=== PATIENT | male | born 1970 | race Caucasian/White ===

== ENCOUNTER 2018-07-04 13:01 | Observation (INO) ==
[2018-07-04] MEDS ORDERED: NITROGLYCERIN 2% OINTMENT 30GM TUBE EXT ONE (13:24)
[2018-07-04 13:30] LABS: Basophils # (auto) 0.03 K/uL (0-0.2); Basophils % (auto) 0.6 %; Eosinophils # (auto) 0.05 K/uL (0-0.5); Hematocrit (blood only) 44.3 % (42-52); Hemoglobin 15.5 g/dL (14.0-18.0); Immature Granulocytes # (auto) 0.01 K/uL (0.00-0.02); Immature Granulocytes % (auto) 0.2 %; Lymphocytes % (auto) 38.9 %; Mean Platelet Volume 9.3 fL (7.4-10.4); Monocytes # (auto) 0.47 K/uL (0.11-0.59); Monocytes % (auto) 9.6 %; Neutrophils # (auto) 2.42 K/uL (1.4-6.5); Neutrophils % (auto) 49.7 %; Platelet Count 287 K/uL (130-400); RDW Coefficient of Variation 12.6 % (11.5-14.5); RDW Standard Deviation 39.9 fL (36.4-46.3); Red Blood Count 5.15 M/uL (4.7-6.1); White Blood Count 4.88 K/uL (4.8-10.8)
--- NOTE | 2018-07-04 13:33 | Emergency Department Note ---
History of Present Illness General Chief complaint: Chest Pain Time Seen by Provider: 07/04/18 13:10 History of Present Illness This patient is a pleasant 47-year-old male who presents to the emergency department via ambulance for complaints of chest pain that started this morning around 7 AM. It is a dull, aching sensation in the left side of the chest. It does not radiate anywhere. The patient received nitroglycerin in the ambulance that seem to make his pain slightly better. He denies any shortness of breath. No recent illnesses. He did have an episode earlier this morning when he felt clammy, sweaty and tingling in his fingers. He denies any known history of cardiac disease. He reports having a normal stress test about 4-5 years ago. The patient also admits to intermittently having this chest pain throughout the week. He felt it yesterday when he was on the treadmill. Home Medications Home Medications Medication Instructions Recorded Confirmed Type omeprazole 20 mg PO DAILY 07/04/18 07/04/18 History Allergies Allergy/AdvReac Type Severity Reaction Status Date / Time No Known Allergies Allergy Unknown Verified 07/04/18 14:27 Past Med/Surg History Medical History GERD (gastroesophageal reflux disease) (Chronic) Surgical History History of hand surgery (Resolved) metacarpal fracture repair Social History Current Living Situation: Spouse and Family Other Information That Helps Us Care for You: Yes Feels Safe at Home: Yes Safety Concerns: Feels Safe At This Time Smoking Status: Never smoker Hx Alcohol Use: No Hx Substance Use: No Beliefs That Will Affect Care: None Preferred Language: Kiswahili Communication Ability: Effective Review of Systems A total of 10 systems reviewed and were otherwise negative Physical Exam Vital Signs Vital Signs - 24 hr 07/04/18 13:01 07/04/18 13:04 07/04/18 13:35 Temperature 37.0 C Temperature Source Oral Sepsis Recent Fever Within 48 Hours No Sepsis New/Unexplained Change in Mental Status No Sepsis Action Taken by Nursing No Action Required Pulse Rate 71 73 71 Pulse Rate [Left Radial] Pulse Rate from SpO2 Sensor 77 72 Pulse Rhythm Regular Pulse Rhythm [Left Radial] Pulse Strength [Left Radial] Respiratory Rate 18 22 23 Respiratory Effort / Characteristics Non-Labored Respiratory Depth Normal Respiratory Pattern Regular Blood Pressure 183/74 H 183/74 H 165/90 H Blood Pressure [Left Arm] Blood Pressure Mean 110 110 115 Blood Pressure Mean [Left Arm] Blood Pressure Position [Left Arm] Pulse Oximetry 98 97 96 Oxygen Delivery Method Room Air 07/04/18 14:00 07/04/18 14:30 07/04/18 15:01 Temperature Temperature Source Sepsis Recent Fever Within 48 Hours Sepsis New/Unexplained Change in Mental Status Sepsis Action Taken by Nursing Pulse Rate 76 76 74 Pulse Rate [Left Radial] Pulse Rate from SpO2 Sensor 77 77 74 Pulse Rhythm Pulse Rhythm [Left Radial] Pulse Strength [Left Radial] Respiratory Rate 20 20 18 Respiratory Effort / Characteristics Respiratory Depth Respiratory Pattern Blood Pressure 157/80 H 165/81 H 175/87 H Blood Pressure [Left Arm] Blood Pressure Mean 105 109 116 Blood Pressure Mean [Left Arm] Blood Pressure Position [Left Arm] Pulse Oximetry 97 96 97 Oxygen Delivery Method 07/04/18 15:31 07/04/18 16:00 07/04/18 16:41 Temperature Temperature Source Sepsis Recent Fever Within 48 Hours Sepsis New/Unexplained Change in Mental Status Sepsis Action Taken by Nursing Pulse Rate 91 H 74 74 Pulse Rate [Left Radial] Pulse Rate from SpO2 Sensor 91 H 73 Pulse Rhythm Pulse Rhythm [Left Radial] Pulse Strength [Left Radial] Respiratory Rate 15 11 L 11 L Respiratory Effort / Characteristics Respiratory Depth Respiratory Pattern Blood Pressure 109/96 138/69 138/69 Blood Pressure [Left Arm] Blood Pressure Mean 100 92 Blood Pressure Mean [Left Arm] Blood Pressure Position [Left Arm] Pulse Oximetry 96 95 95 Oxygen Delivery Method Room Air 07/04/18 17:42 07/04/18 23:22 07/04/18 23:40 Temperature 37.1 C 36.9 C Temperature Source Oral Oral Sepsis Recent Fever Within 48 Hours Sepsis New/Unexplained Change in Mental Status Sepsis Action Taken by Nursing Pulse Rate 63 Pulse Rate [Left Radial] 79 64 Pulse Rate from SpO2 Sensor Pulse Rhythm Pulse Rhythm [Left Radial] Regular Pulse Strength [Left Radial] Normal Respiratory Rate 18 18 Respiratory Effort / Characteristics Non-Labored Spontaneous Respiratory Depth Normal Respiratory Pattern Regular Blood Pressure Blood Pressure [Left Arm] 140/85 126/71 Blood Pressure Mean Blood Pressure Mean [Left Arm] 103 89 Blood Pressure Position [Left Arm] Lying Lying Pulse Oximetry 97 97 Oxygen Delivery Method Room Air Room Air 07/05/18 04:10 07/05/18 07:13 07/05/18 08:00 Temperature 36.9 C 36.9 C Temperature Source Oral Oral Sepsis Recent Fever Within 48 Hours Sepsis New/Unexplained Change in Mental Status Sepsis Action Taken by Nursing Pulse Rate 64 Pulse Rate [Left Radial] 59 L 59 L Pulse Rate from SpO2 Sensor Pulse Rhythm Pulse Rhythm [Left Radial] Pulse Strength [Left Radial] Respiratory Rate 18 18 Respiratory Effort / Characteristics Respiratory Depth Respiratory Pattern Blood Pressure Blood Pressure [Left Arm] 148/79 H 147/87 H Blood Pressure Mean Blood Pressure Mean [Left Arm] 102 107 Blood Pressure Position [Left Arm] Lying Pulse Oximetry 97 98 Oxygen Delivery Method Room Air Room Air Constitutional WD/WN, vitals as above Eyes EOM intact bilaterally ENMT external ear and nose normal, oropharynx normal Neck trachea midline Respiratory normal respiratory effort, lungs clear to auscultation Cardiovascular RRR, no murmur, no edema No tenderness over the thorax Gastrointestinal (Abdomen) normal bowel sounds, soft, nontender, no hepatosplenomegaly Musculoskeletal no cyanosis or clubbing, extremities motor strength 5/5 Skin no rashes, warm and dry Neurologic Alert and oriented x3. No focal motor deficits. Psychiatric Acting appropriately Course Patient was seen and examined Vital signs including blood pressure were reviewed medications list was verified with patient Labs were obtained, and a saline lock was established The patient was ordered nitroglycerin paste. Imaging was performed and reviewed Upon reevaluation, the patient said that the pain was slightly better. We discussed his results. He voiced understanding, and was in agreement with the plan. The case was also discussed with my supervising physician and subsequently the [facility] service. They kindly agreed to evaluate the patient for possible further inpatient management Consultations Consultation #1: [place] Hospitalist Administered Medications Acetaminophen (Tylenol) 650 mg PO Q4H PRN PRN Reason: Pain or Fever Stop: 08/03/18 17:19 Last Admin: 07/04/18 17:54 Dose: 650 mg Aspirin (Ecotrin Ectab) 81 mg PO QAM [facility] Stop: 08/04/18 08:59 Last Admin: 07/05/18 07:51 Dose: 81 mg Pantoprazole Sodium (Protonix) 40 mg PO DAILY [facility] Stop: 08/04/18 08:59 Last Admin: 07/05/18 07:51 Dose: 40 mg Discontinued Medications Nitroglycerin (Nitro-Bid 2%) 1 inch EXT ONE ONE Stop: 07/04/18 13:25 Last Admin: 07/04/18 13:45 Dose: 1 inch Medical Decision Making Medical Records Attestation: I reviewed the patient's medical records. Home Medications Current Medication List: was personally reviewed by me Laboratory Data Attestation: I reviewed the patient's lab results. Result diagrams: 07/05/18 09:52 07/04/18 12:49 Lab Results 07/04/18 07/04/18 07/04/18 Range/Units 12:49 12:49 12:49 WBC 4.88 (4.8-10.8) K/uL RBC 5.15 (4.7-6.1) M/uL Hgb 15.5 (14.0-18.0) g/dL Hct 44.3 (42-52) % MCV 86.0 (80-100) fL MCH 30.1 (25-34) pg MCHC 35.0 (32-36) g/dL RDW Std Deviation 39.9 (36.4-46.3) fL RDW Coeff of Mati 12.6 (11.5-14.5) % Plt Count 287 (130-400) K/uL MPV 9.3 (7.4-10.4) fL Immature Gran % (Auto) 0.2 % Neut % (Auto) 49.7 % Lymph % (Auto) 38.9 % Yancey % (Auto) 9.6 % Eos % (Auto) 1.0 % Baso % (Auto) 0.6 % Immature Gran # (Auto) 0.01 (0.00-0.02) K/uL Neut # (Auto) 2.42 (1.4-6.5) K/uL Lymph # (Auto) 1.90 (1.2-3.4) K/uL Yancey # (Auto) 0.47 (0.11-0.59) K/uL Eos # (Auto) 0.05 (0-0.5) K/uL Baso # (Auto) 0.03 (0-0.2) K/uL PT 10.4 (9.0-12.0) Seconds INR 1.0 (0.9-1.1) Sodium 138 (136-145) mmol/L Potassium 3.5 (3.5-5.1) mmol/L Chloride 106 (98-107) mmol/L Carbon Dioxide 24 (21-32) mmol/L Anion Gap 8.0 (3-11) BUN 13 (7-18) mg/dl Creatinine 0.99 (0.6-1.4) mg/dl Est Cr Clr Drug Dosing 123.4 ml/min Est GFR ( Amer) 103.9 Est GFR (Non-Af Amer) 89.7 BUN/Creatinine Ratio 13.1 (10-20) Glucose 98 (70-99) mg/dl Calcium 8.4 L (8.5-10.1) mg/dl Total Bilirubin 0.6 (0.2-1) mg/dl AST 25 (15-37) U/L ALT 40 (12-78) U/L Alkaline Phosphatase 59 (45-117) U/L Troponin I < 0.015 (0-0.045) ng/ml Total Protein 7.6 (6.4-8.2) gm/dl Albumin 3.8 (3.4-5.0) gm/dl Globulin 3.8 (2.5-4.0) gm/dl Albumin/Globulin Ratio 1.0 (0.9-2) TSH 1.470 (0.300-4.500) uIu/ml Specimen Hemolysis 07/04/18 07/05/18 07/05/18 Range/Units 18:16 00:11 09:52 WBC 4.68 L (4.8-10.8) K/uL RBC 5.22 (4.7-6.1) M/uL Hgb 15.5 (14.0-18.0) g/dL Hct 45.4 (42-52) % MCV 87.0 (80-100) fL MCH 29.7 (25-34) pg MCHC 34.1 (32-36) g/dL RDW Std Deviation 40.5 (36.4-46.3) fL RDW Coeff of Mati 12.6 (11.5-14.5) % Plt Count 272 (130-400) K/uL MPV 9.5 (7.4-10.4) fL Immature Gran % (Auto) % Neut % (Auto) % Lymph % (Auto) % Yancey % (Auto) % Eos % (Auto) % Baso % (Auto) % Immature Gran # (Auto) (0.00-0.02) K/uL Neut # (Auto) (1.4-6.5) K/uL Lymph # (Auto) (1.2-3.4) K/uL Yancey # (Auto) (0.11-0.59) K/uL Eos # (Auto) (0-0.5) K/uL Baso # (Auto) (0-0.2) K/uL PT (9.0-12.0) Seconds INR (0.9-1.1) Sodium (136-145) mmol/L Potassium (3.5-5.1) mmol/L Chloride (98-107) mmol/L Carbon Dioxide (21-32) mmol/L Anion Gap (3-11) BUN (7-18) mg/dl Creatinine (0.6-1.4) mg/dl Est Cr Clr Drug Dosing ml/min Est GFR ( Amer) Est GFR (Non-Af Amer) BUN/Creatinine Ratio (10-20) Glucose (70-99) mg/dl Calcium (8.5-10.1) mg/dl Total Bilirubin (0.2-1) mg/dl AST (15-37) U/L ALT (12-78) U/L Alkaline Phosphatase (45-117) U/L Troponin I < 0.015 < 0.015 (0-0.045) ng/ml Total Protein (6.4-8.2) gm/dl Albumin (3.4-5.0) gm/dl Globulin (2.5-4.0) gm/dl Albumin/Globulin Ratio (0.9-2) TSH (0.300-4.500) uIu/ml Specimen Hemolysis Imaging Data Attestation: I personally reviewed and interpreted this imaging study as follows : Radiologist's Impression: Chest x-ray IMPRESSION: No active disease in the chest. Electronically signed by: Chapin Sierra M.D. 07/04/2018 1:37 PM Dictated: 07/04/18 1335 Transcribed: 07/04/18 1335 ECG Data Attestation: I personally reviewed and interpreted this ECG as follows: Rate (beats per minute): 69 Rhythm: normal sinus Findings: + ST depression (V3, V4, V5, V6) Comparison ECG Date: from (2013) Blood Pressure Blood Pressure Findings: Elevated blood pressure MDM Narrative Differential diagnosis: Acute myocardial infarction, ischemia, cardiac arrhythmia, anemia, thyroid abnormality, pneumothorax, pneumonia, bronchitis, pericarditis, electrolyte imbalance, musculoskeletal pain This patient is a 47-year-old male who presents to the emergency department with main complaint of chest pain as noted above. On exam, he was hypertensive. Otherwise his vital signs were stable. I could not reproduce any chest pain on exam. His labs are fairly unremarkable. His troponin is negative. I was slightly concerned that there appear to be EKG changes particularly in the lateral leads. For this reason and the fact that his chest pain was exertional yesterday and improved with nitroglycerin, it was felt that hospitalist consultation was warranted. They will evaluate the patient for further treatment. Impression & Plan Chest pain Discharge Plan Visit Data *Final* Discharge Date/Time: 07/04/18 16:41 Chief Complaint: Chest Pain ED Provider: Ken Duran ED Midlevel Provider: Tali Figueroa Discharge Problem: Chest pain Patient Disposition: Admitted As Inpatient Condition: Fair Discharge Instructions Interventions: ED Discharge Assessment Last Done: 07/04/18 16:41
--- NOTE | 2018-07-04 13:38 | XRay Report ---
SINGLE VIEW CHEST CLINICAL HISTORY: Left-sided chest pain. FINDINGS: An AP, portable, upright chest radiograph is compared to study dated 07/22/2013. The cardiom ediastinal silhouette is unremarkable. The lungs and pleural spaces are clear. No pneumothorax is see n. The bony thorax is grossly intact. IMPRESSION: No active disease in the chest. Electronically signed by: Chapin Sierra M.D. 07/04/2018 1:37 PM
[2018-07-04 13:44] LABS: Prothrombin Time 10.4 Seconds (9.0-12.0)
[2018-07-04 13:45] LABS: Alanine Aminotransferase 40 U/L (12-78); Albumin Level 3.8 gm/dl (3.4-5.0); Aspartate Aminotransferase 25 U/L (15-37); BUN Creatinine Ratio 13.1 (10-20); Blood Urea Nitrogen 13 mg/dl (7-18); Calcium 8.4 mg/dl (8.5-10.1); Carbon Dioxide 24 mmol/L (21-32); Chloride 106 mmol/L (98-107); Creatinine Clr Calc Pharmacy 123.4 ml/min; Est GFR (African American) 103.9; Est GFR (Non-African American) 89.7; Glucose 98 mg/dl (70-99); Potassium 3.5 mmol/L (3.5-5.1); Sodium 138 mmol/L (136-145)
[2018-07-04 13:56] LABS: Alkaline Phosphatase 59 U/L (45-117); Bilirubin,Total 0.6 mg/dl (0.2-1); Globulin 3.8 gm/dl (2.5-4.0); Total Protein 7.6 gm/dl (6.4-8.2); Troponin I < 0.015 ng/ml (0-0.045)
--- NOTE | 2018-07-04 15:33 | History & Physical Report ---
Date of Service July 04, 2018 Assessment & Plan (1) Chest pain: Presented wtih Left sided dull aching non-radiating CP x 1 week. This morning had diaphoresis, dizziness. Has continued to exercise this week without increased CP and no SOB, diaphoresis, N/V. Today was given 1 spray nitro by EMS with reported improved CP, then returned with dull L sided CP In ER afebrile, P: 71, R: 18, BP: 183/74 down to 157/80, 98% on RA -In ER 1" nitro paste applied with reported continued mild dull ache left chest CHEST PAIN R/O ACS. Hypertensive on ER arrival. Risk factors: obesity, FH CAD DDX: anxiety, musculoskeletal. Not pleuritic in nature -Monitor Vitals -Repeat EKG in am -Will trend troponin -echo -lipid panel in am -ASA -Cardiology consult, utilization review rn recommends holding heparin at this time (2) Elevated BP without diagnosis of hypertension: BP: 183/74 down to 157/80 with 1" nitro paste -monitor, may need to add BP med (3) GERD (gastroesophageal reflux disease): -continue PPI DVT Prophylaxis -SCDs Full Code Follows with Dr Simmons for routine care Pt was seen with Dr Poole. See addendum History of Present Illness Chief Complaint: CP Primary Care Provider: Helder Simmons MD Pt is 47 y/o M with PMH GERD presented to ER via EMS with c/o CP. Pt reports for past week having left sided anterior dull aching CP that is non-radiating. Does not notice pain when he wakes up but notices it later in the morning. 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 Exercises 4-5 times a week, alternating weight lifting and running for 30 minutes on the treadmill. He has continued exercising this week and yesterday had CP prior to running and denies any increased CP, SOB or diaphoresis while running. This morning woke up without pain and when got to work started with dull ache to L chest. Stood up and felt diaphoretic and dizzy and bilateral hand paresthesias. EMS gave pt one spray of nitro and pt reports CP resolved but dull ache returned when arrived to ER. In ER had 1" nitropaste placed and pt reports continued dull L CP. Pt doesn't think under more stress recently. On omeprazole daily for GERD, denies heartburn symptoms. Pt reports hx "borderline " HTN couple years ago and lost 20 pounds and BP's normalized and did not require medication. Pt states has slowly gained back 20 pounds. Outpatient visit 04/2018 BP: 120/84. No history of tobacco use, diabetes or HLD. FH grandfather fatal [place] age 50's. Denies fever/chills, N/V/D/C, COOLEY, syncope, vision changes, neck pain, SOB, orthopnea, palpitations, cough, sore throat, choking, otalgia, rhinorrhea, abdominal pain, weakness, extremity weakness, extremity edema, extremity pain, rashes, urinary symptoms. Hx CP in 2013 after the of his father and had negative stress test at that time. In 2008 had stress echo with no inducible ischemia, EF: 55-59%. Allergies Allergy/AdvReac Type Severity Reaction Status Date / Time No Known Allergies Allergy Unknown Verified 07/04/18 14:27 Home Medications Home Medications Medication Instructions Recorded Confirmed Type omeprazole 20 mg PO DAILY 07/04/18 07/04/18 History Past Med/Surg History Medical History GERD (gastroesophageal reflux disease) (Chronic) Surgical History History of hand surgery (Resolved) metacarpal fracture repair Social History Current Living Situation: Spouse and Family Other Information That Helps Us Care for You: Yes Feels Safe at Home: Yes Safety Concerns: Feels Safe At This Time Smoking Status: Never smoker Hx Alcohol Use: No Hx Substance Use: No Beliefs That Will Affect Care: None Preferred Language: Vietnamese Communication Ability: Effective Review of Systems All systems reviewed & are unremarkable except as noted in HPI & below Physical Exam 2 Vital Signs (Past 24 Hours): Last Vital Signs Temp 37.0 C 07/04/18 13:01 Pulse 76 07/04/18 14:00 Resp 20 07/04/18 14:00 BP 157/80 H 07/04/18 14:00 Pulse Ox 97 07/04/18 14:00 Physical Exam: General: no apparent distress, WDWN Head: normocephalic, atraumatic Eyes: conjunctiva non-injected, anicteric ENT: normal inspection external ears, nose, mucous membranes moist Neck: supple, trachea midline Lungs: clear, no respiratory distress, no wheezing/rhonchi/rales CV: RRR, no murmur, chest non-tender to palpation, no pretibial edema Abd: normal BS, soft, non-tender Ext: no cyanosis or erythema, no calf tenderness Neuro: A&O x 3, no focal deficits noted, normal affect Skin: warm, dry Results & Data Laboratory Results Short CBC 07/04/18 Range/Units 12:49 WBC 4.88 (4.8-10.8) K/uL Hgb 15.5 (14.0-18.0) g/dL Hct 44.3 (42-52) % Plt Count 287 (130-400) K/uL BMP 07/04/18 12:49 Sodium 138 Potassium 3.5 Chloride 106 Carbon Dioxide 24 BUN 13 Creatinine 0.99 Glucose 98 Calcium 8.4 L Cardiac Enzymes 07/04/18 Range/Units 12:49 Troponin I < 0.015 (0-0.045) ng/ml Liver Function 07/04/18 Range/Units 12:49 Total Bilirubin 0.6 (0.2-1) mg/dl AST 25 (15-37) U/L ALT 40 (12-78) U/L Alkaline Phosphatase 59 (45-117) U/L Albumin 3.8 (3.4-5.0) gm/dl Diagnostic Findings CXR: IMPRESSION: No active disease in the chest. ECG Rate (beats per minute): 69 Rhythm: sinus rhythm Findings: + ST depression (anterior lateral) Supervising Physician Co-Signing Physician Notes Patient is a 47-year-old male with history of GERD and other problems presents with history of chest pain which is dull in quality retrosternal in location, nonradiating. He has been having intermittent chest pain since about a week. Denies any aggravating relieving factors. CXR showed No active disease in the chest. Troponin x2 negative. Chest pain relieved with nitroglycerin while in ED. EKG showed T wave inversions in the anterior leads. On exam patient is well built and nourished, no distress, lungs are clear to auscultation, S1-S2, no murmur, abdomen soft nontender, no pedal edema, alert awake oriented, no focal deficits neurologically. Patient is admitted under observation for chest pain rule out ACS. Check fasting lipid panel, resting echo, repeat EKG in the morning, trend cardiac enzymes, cardiology consulted for possible stress test in the morning. I personally reviewed the record. Patient is interviewed and examined at bedside. Patient's care is coordinated with Emily Clark. Please refer to the documentation above for details of patient's presentation and for discussion of other issues.
[2018-07-04] MEDS ORDERED: ACETAMINOPHEN 325 MG TAB PO PRN (17:20)
[2018-07-04] MEDS ORDERED: NITROGLYCERIN SL 0.4 MG/TAB TAB SL PRN (17:20)
[2018-07-05] MEDS ORDERED: ASPIRIN 81 MG ECTAB PO SCH (09:00)
[2018-07-05] MEDS ORDERED: PANTOprazole 40 MG TAB PO SCH (09:00)
[2018-07-05 10:14] LABS: Hematocrit (blood only) 45.4 % (42-52); Hemoglobin 15.5 g/dL (14.0-18.0); Mean Corpuscular Hgb Conc 34.1 g/dL (32-36); Mean Platelet Volume 9.5 fL (7.4-10.4); Platelet Count 272 K/uL (130-400); RDW Coefficient of Variation 12.6 % (11.5-14.5); RDW Standard Deviation 40.5 fL (36.4-46.3); Red Blood Count 5.22 M/uL (4.7-6.1); White Blood Count 4.68 K/uL (4.8-10.8)
--- NOTE | 2018-07-05 10:40 | Cardiology Consultation ---
Date of Consultation July 05, 2018 Assessment & Plan (1) Chest pain: Symptoms resolved. EKG abnormal on presentation, normal now. Troponin negative x 3. Had prior stress test in 2013 that was negative. No recurrent symptoms in the interim until now. Resting echo with normal wall motion, normal LVEF, no significant valvular disease. Has family hx of Brugada syndrome, however this is usually associated with ST elevation in the septal leads, which pt does not have. Presenting EKG is very concerning for ischemia, however, symptoms are atypical for angina, lasted days with normal serial troponin levels and were not reprodued with exercise. Will therefore proceed with stress echo first, however , would have low threshold for catheterization. (2) Elevated BP without diagnosis of hypertension: Has past high BP. Improved with wt loss, but worse recently. Will reassess with exercise response to BP. 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 He notes one week of dull chest ache for the most part noted at rest. He maintained his exercise program and ran for two 30 minute sessions, performed weight lifting, and performed additional aerobic activity with a circuit training session. Noted no symptoms suggestive of angina with exercise. Yesterday he was working and had mild ache in chest. Was assessed by paramedics and was found to have a BP reading that was high for him. He presented to the ED and had high BP on presentation with reading of 183/ 74. This am , feels well. No chest pain at present. Telemetry reveals normal SR. FAMILY HISTORY: Father at age of 69 of history of angiosarcoma, no CAD history. 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 Grew up in [place] Allergies Allergy/AdvReac Type Severity Reaction Status Date / Time No Known Allergies Allergy Unknown Verified 07/04/18 14:27 Home Medications Home Medications Medication Instructions Recorded Confirmed Type omeprazole 20 mg PO DAILY 07/04/18 07/04/18 History Patient History Medical History GERD (gastroesophageal reflux disease) (Chronic) Surgical History History of hand surgery (Resolved) metacarpal fracture repair Social History Current Living Situation: Spouse and Family Other Information That Helps Us Care for You: Yes Feels Safe at Home: Yes Safety Concerns: Feels Safe At This Time Smoking Status: Never smoker Hx Alcohol Use: No Hx Substance Use: No Beliefs That Will Affect Care: None Preferred Language: Greenlandic Communication Ability: Effective Review of Systems 10 point ROS , negative with the exception of that above Physical Exam 2 Vital Signs (Past 24 Hours): Last Vital Signs Temp 36.9 C 07/05/18 08:00 Pulse 59 L 07/05/18 08:00 Resp 18 07/05/18 08:00 BP 147/87 H 07/05/18 08:00 Pulse Ox 98 07/05/18 08:00 Constitutional: WD/WN, vitals as above Neck: trachea midline, no thyromegaly Cardiovascular: RRR, no murmur, no edema Extremities: no edema Gastrointestinal (Abdomen): normal bowel sounds, soft, nontender, no hepatosplenomegaly Neurologic: moves all extremities and awake; no focal motor deficits Results & Data Laboratory Results Cardiac Enzymes 07/04/18 07/04/18 07/05/18 Range/Units 12:49 18:16 00:11 AST 25 (15-37) U/L Troponin I < 0.015 < 0.015 < 0.015 (0-0.045) ng/ml Coagulation 07/04/18 Range/Units 12:49 PT 10.4 (9.0-12.0) Seconds CBC 07/04/18 07/05/18 Range/Units 12:49 09:52 WBC 4.88 4.68 L (4.8-10.8) K/uL RBC 5.15 5.22 (4.7-6.1) M/uL Hgb 15.5 15.5 (14.0-18.0) g/dL Hct 44.3 45.4 (42-52) % Plt Count 287 272 (130-400) K/uL Neut # (Auto) 2.42 (1.4-6.5) K/uL Lymph # (Auto) 1.90 (1.2-3.4) K/uL Will # (Auto) 0.47 (0.11-0.59) K/uL Eos # (Auto) 0.05 (0-0.5) K/uL Baso # (Auto) 0.03 (0-0.2) K/uL Comprehensive Metabolic Panel 07/04/18 Range/Units 12:49 Sodium 138 (136-145) mmol/L Potassium 3.5 (3.5-5.1) mmol/L Chloride 106 (98-107) mmol/L Carbon Dioxide 24 (21-32) mmol/L BUN 13 (7-18) mg/dl Creatinine 0.99 (0.6-1.4) mg/dl Glucose 98 (70-99) mg/dl Calcium 8.4 L (8.5-10.1) mg/dl AST 25 (15-37) U/L ALT 40 (12-78) U/L Alkaline Phosphatase 59 (45-117) U/L Total Protein 7.6 (6.4-8.2) gm/dl Albumin 3.8 (3.4-5.0) gm/dl Intake and Output 07/04/18 07/05/18 07/05/18 22:59 06:59 14:59 Other: Weight 115.7 kg 111.7 kg Diagnostic Findings EKG on admission: 07/04/18 1308 , SR at 69, ST abnormality in leads V3-V5 concerning for anterior ischemia. Repeat EKG 07/05/18, NSR at 64, ST changes have resolved. Medications Administered Current Inpatient Medications Acetaminophen (Tylenol) 650 mg PO Q4H PRN PRN Reason: Pain or Fever Stop: 08/03/18 17:19 Last Admin: 07/04/18 17:54 Dose: 650 mg Aspirin (Ecotrin Ectab) 81 mg PO QAM [facility] Stop: 08/04/18 08:59 Last Admin: 07/05/18 07:51 Dose: 81 mg Nitroglycerin (Nitrostat) 0.4 mg SL UD PRN PRN Reason: Chest Pain Stop: 08/03/18 17:19 Pantoprazole Sodium (Protonix) 40 mg PO DAILY [facility] Stop: 08/04/18 08:59 Last Admin: 07/05/18 07:51 Dose: 40 mg
[2018-07-05 10:57] LABS: BUN Creatinine Ratio 12.9 (10-20); Calcium 8.8 mg/dl (8.5-10.1); Creatinine Clr Calc Pharmacy 110.2 ml/min; Est GFR (African American) 92.5; Est GFR (Non-African American) 79.8
[2018-07-05 10:58] LABS: Chol HDL Ratio 6; Cholesterol 258 mg/dl (0-200); HDL Cholesterol 44 mg/dl; LDL Cholesterol Calculated 171 mg/dl; Triglycerides 213 mg/dl (0-150); VLDL Cholesterol 43 mg/dl
[2018-07-05] MEDS ORDERED: AMLODIPINE BESYLATE 5 MG TAB PO SCH (12:00)
[2018-07-05] MEDS ORDERED: ATORVASTATIN 10 MG TAB PO SCH (12:00)
--- NOTE | 2018-07-05 16:27 | Discharge Summary ---
Date of Service July 05, 2018 Admission HPI Per Admitting Provider Pt is 47 y/o M with PMH GERD presented to ER via EMS with c/o CP. Pt reports for past week having left sided anterior dull aching CP that is non-radiating. Does not notice pain when he wakes up but notices it later in the morning. 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 Exercises 4-5 times a week, alternating weight lifting and running for 30 minutes on the treadmill. He has continued exercising this week and yesterday had CP prior to running and denies any increased CP, SOB or diaphoresis while running. This morning woke up without pain and when got to work started with dull ache to L chest. Stood up and felt diaphoretic and dizzy and bilateral hand paresthesias. EMS gave pt one spray of nitro and pt reports CP resolved but dull ache returned when arrived to ER. In ER had 1" nitropaste placed and pt reports continued dull L CP. Pt doesn't think under more stress recently. On omeprazole daily for GERD, denies heartburn symptoms. Pt reports hx "borderline " HTN couple years ago and lost 20 pounds and BP's normalized and did not require medication. Pt states has slowly gained back 20 pounds. Outpatient visit 04/2018 BP: 120/84. No history of tobacco use, diabetes or HLD. FH grandfather fatal [place] age 50's. Denies fever/chills, N/V/D/C, COO[place], syncope, vision changes, neck pain, SOB, orthopnea, palpitations, cough, sore throat, choking, otalgia, rhinorrhea, abdominal pain, weakness, extremity weakness, extremity edema, extremity pain, rashes, urinary symptoms. Hx CP in 2013 after the of his father and had negative stress test at that time. In 2008 had stress echo with no inducible ischemia, EF: 55-59%. Principal Diagnosis Chest pain, noncardiac, negative cardiac stress test, hypertension, hyperlipidemia Discharge Exam Constitutional WD/WN, vitals as above Eyes EOM intact bilaterally ENMT external ear and nose normal, oropharynx normal Neck trachea midline, no thyromegaly trachea midline Respiratory normal respiratory effort, lungs clear to auscultation Cardiovascular RRR, no murmur, no edema Extremities: no edema Gastrointestinal (Abdomen) normal bowel sounds, soft, nontender, no hepatosplenomegaly Musculoskeletal no cyanosis or clubbing, extremities motor strength 5/5 Skin no rashes, warm and dry Neurologic moves all extremities and awake; no focal motor deficits Discharge Data Allergies Allergy/AdvReac Type Severity Reaction Status Date / Time No Known Allergies Allergy Unknown Verified 07/04/18 14:27 Consultations 07/04/18 17:20 Consult Cardiology Routine Hospital Course (1) Chest pain: Presented with left sided dull aching non-radiating CP x 1 week. Symptom has resolved Appreciate input from cardiology Echo shows normal LV function, no wall motion abnormality Cardiac stress test is negative for stress-induced ischemia Patient did had hypertensive episode during stress test Started on low-dose Norvasc 2.5 mg daily Need continued outpatient follow-up (2) Hyperlipidemia: Fasting lipid panel shows elevated triglyceride 213/LDL 170/total cholesterol 258/HDL 44// Patient started with atorvastatin 10 mg daily Instruction given to low-cholesterol diet, lifestyle modification: Exercise Patient is agreeable Repeat lipid panel should be checked in 6 months then yearly (3) Elevated BP without diagnosis of hypertension: BP: 183/74 down to 157/80 with 1" nitro paste - Hypertensive response on cardiac stress test without any angina Appreciate input from cardiology Norvasc 2.5 mg p.o. daily Outpatient follow-up with family physician (4) GERD (gastroesophageal reflux disease): -continue PPI DVT Prophylaxis -SCDs Full Code Stable to be discharged home today Family physician follow-up with Dr. Simmons Total Time Total Time Spent Total Time Spent (In Minutes): Approximate 35-minute Total Time Includes: Examination of the Patient, Discharge Planning, Medication Reconciliation and Communication With Other Providers Discharge Plan Discharge Items Patient Disposition: Home - Self-Care Reason For Visit: CP Discharge Diagnosis: CHEST PAIN /NON CARDIAC -HYPERTENSION Condition: Fair Discharge Goals: Decrease discomfort Activity: Resume your previous activity Non-emergency contact: Primary Care Provider Call non-emergency contact if: you have any medication questions Follow-up/Referrals: Helder Simmons MD [Primary Care Provider] - (HOSPITAL FOLLOW UP IN A WEEK , OFFICE WILL CALL WITH APPOINTMENT ) Diet: Heart Healthy Addtl Provider Instructions: FOLLOW UP WITH FAMILY PHYSICIAN IN A WEEK NEW MEDICATIONS : amlodipine /Norvasc 2.5 mg by mouth daily-for High blood pressure Your Cholesterol level is high you are prescribed Atorvastatin 10 mg daily ( cholesterol med) Lifestyle changes including weight loss and limiting alcohol intake recommended. please have referral for Sleep study to assess obstructive sleep apnea Dr Dial's office will be able to arrange and schedule Prescriptions: New amlodipine [Norvasc] 5 mg Tablet 2.5 mg PO QAM 30 Days Qty: 15 RF: 3 atorvastatin 10 mg Tablet 10 mg PO QAM 30 Days Qty: 30 RF: 3 aspirin [Ecotrin Low Strength] 81 mg Tablet,Delayed Release (Dr/Ec) 81 mg PO QAM 30 Days Qty: 30 RF: 3 Continue omeprazole 20 mg capsule,delayed release(DR/EC) 20 mg PO DAILY RF: 0 Stand-Alone Forms: [employer]/Other Patient Handouts: HDL Cholesterol, Exercise Aerobic Healthy Heart , Cholesterol High Assess Risk, Cooking Tips Low Fat, Flavor Add Low Fat Meals, Exercise Fitting Into Your Life, Eating Healthy Go, ED Diet Low Fat, ED Diet Cholesterol Lowering Discharge Orders: Discharge Order (Routine); Ordered 07/05/18 Ordered By: Na Kamara Admission Data Admit Date/Time: 07/04/18 15:15 Attending Provider: Na Kamara Admit Provider: Tej Poole Primary Care Provider: Helder Simmons Other Providers: Marko Flannery Service: Telemetry Other Interventions: Discharge Summary Assessment (RN) Last Done: 07/05/18 16:33 DC Date/Time DO NOT enter until pt leaves facility: 07/05/18 16:51
== END 2018-07-05 16:51 | disposition home or self-care (01) ==
LOC: ED 13:01 → 2N 13:01